=== PATIENT | female | born 1965 | race Caucasian/White ===

== ENCOUNTER 2019-01-03 08:59 | Emergency (ER) | payer OTHER ==
[~2019-01-03] VITALS: Ht 170.2 cm; Wt 93.0 kg
[~2019-01-03 08:59] MED LIST: PREDNISONE 20 M20 MG PO; VALACYCLOVIR1000 MG PO
[2019-01-03] MEDS ORDERED: ACYCLOVIR 400400 MG PO (09:22)
[2019-01-03] MEDS ORDERED: BACTRIM DS TAB1 EACH PO (09:22)
[2019-01-03 09:26] VITALS: BP 162/92
== END 2019-01-03 09:26 | disposition home or self-care (01) ==
LOC: M.ERS 08:59
DX: B00.1 Herpesviral vesicular dermatitis (principal); I10 Essential (primary) hypertension; M54.9 Dorsalgia, unspecified; G89.29 Other chronic pain; F17.210 Nicotine dependence, cigarettes, uncomplicated; Z88.0 Allergy status to penicillin; Z88.1 Allergy status to other antibiotic agents